=== PATIENT | female | born 1995 | race African-American/Black ===

== ENCOUNTER → 2017-12-12 | Outpatient (CLI) | payer OTHER ==
--- NOTE | 2017-12-12 12:24 | RAD ---
Obstetrical ultrasound, 12/12/2017: HISTORY: Routine evaluation There is a single intrauterine fetus in a breech orientation. The biparietal diameter measures 6.1 cm compatible with a gestational age of 24-25 weeks. The femur length measurement suggests a gestational age of 24 weeks. The abdominal circumference measurement suggests a gestational age of 23 weeks. The average gestational age based on all the measurements is 24 weeks and 1 day yielding a sonographic EDC of 04/02/2018. Normal activity and heart motion were seen. A four-chamber heart was evident with a heart rate of 141 bpm. Fluid is evident in the bladder and stomach. The visualized portions of the spine and kidneys are unremarkable. A three-vessel umbilical cord is evident with a normal cord insertion site. The head to abdominal circumference ratio is 1.26 which is slightly elevated. The placenta lies anteriorly with no evidence of a placenta previa. The amniotic fluid volume appears to be within normal limits. The cervical length was estimated at 4.3 cm. IMPRESSION: 1. Single viable intrauterine fetus of approximately 24 weeks gestational age as described above. 2. The head to abdominal circumference ratio is slightly elevated. Although this may be on a technical basis, the possibility of early asymmetric IUGR cannot be excluded. Sonographic follow-up is suggested. Electronically signed by: Alessio Serrato MD (12/12/2017 12:21 PM) [facility]
== END | disposition home or self-care (01) ==
LOC: US 10:17
PROVIDERS: ATTEND Obstetrics & Gynecology
DX: O32.1XX0 Maternal care for breech presentation, not applicable or unspecified (principal); Z3A.24 24 weeks gestation of pregnancy
CPT/HCPCS: 76805